=== PATIENT | female | born 1935 | race African-American/Black ===

== ENCOUNTER 2016-07-02 11:15 | Inpatient (IN) | payer MEDICARE ==
[2016-07-02 14:36] VITALS: BMI 33.1
[2016-07-02] MEDS ORDERED: Acetaminophen 325 MG TAB PO PRN ×2 (16:00)
[2016-07-02] MEDS ORDERED: Warfarin Sodium 5 MG TAB PO SCH ×2 (17:00)
[2016-07-02] MEDS ORDERED: Milk Of Magnesia 30 ML UDCUP PO PRN (17:11)
[2016-07-02] MEDS ORDERED: Ondansetron ODT 4 MG TAB PO PRN (17:11)
[2016-07-02] MEDS ORDERED: Albuterol Sulfate 2.5 mg/3 ml Neb NEB PRN (17:13)
[2016-07-02] MEDS ORDERED: Ipratropium Bromide 2.5 ml Neb NEB PRN (17:13)
[2016-07-02] MEDS ORDERED: Guaifenesin DM 100-10/5 ML UDCUP PO PRN (17:23)
[2016-07-02] MEDS ORDERED: Enoxaparin Sodium 100 MG/ML SYRINGE SC SCH (18:00)
[2016-07-02] MEDS ORDERED: HYDROcodone/Acetaminophen 5/325 mg Tablet PO PRN (18:43)
[2016-07-02] MEDS ORDERED: Sodium Chloride 0.9% 20 ML ONE (20:22)
[2016-07-02 20:54] LABS: #Basophils 0.1 thou/uL (0.0-0.2); #Lymphocytes 1.2 thou/uL (1.20-3.40); #Monocytes 0.7 thou/uL (0.11-0.59); #Neutrophils 15.3 thou/uL (1.40-6.50); %Basophils 0.3 % (0.0-1.0); %Eosinophils 0.1 % (0.0-10.0); %Lymphocytes 6.9 % (21.0-51.0); %Monocytes 3.8 % (0.0-10.0); Mean Corpuscular HGB CONC 34.1 g/dL (32.0-36.0); Mean Corpuscular Hemoglobin 29.2 pg (27.0-31.0); Mean Corpuscular Volume 85.8 fl (81.0-99.0); Mean Platelet Volume 8.1 fL (7.4-10.4); Platelet Count 197 thou/uL (130-400); RBC Distribution Width 13.4 % (11.5-14.5); Red Blood Cell (RBC) Count 4.11 mill/uL (4.20-5.40); White Blood Cell (WBC) Count 17.2 thou/uL (4.8-10.8)
[2016-07-02] MEDS ORDERED: Donepezil HCl 10 MG TAB PO SCH (21:00)
[2016-07-02] MEDS ORDERED: Cefdinir 300 MG CAP PO SCH (21:00)
[2016-07-02 21:39] LABS: ALT (SGPT) 71 U/L (8-55); AST (SGOT) 41 U/L (5-34); Albumin 3.5 g/dL (3.4-4.8); Alkaline Phosphatase 95 U/L (40-150); Anion Gap 15 mmol/L (10-20); BUN (Urea Nitrogen) 13 mg/dL (9.8-20.1); Bilirubin, Total 0.3 mg/dL (0.2-1.2); Calc. Creatinine Clearance 73 mL/min (70-130); Calcium 8.5 mg/dL (7.8-10.44); Carbon Dioxide 22 mmol/L (23-31); Chloride 101 mmol/L (98-107); Estimated GFR-MDRD 80; Globulin 2.3 g/dL (2.4-3.5); Glucose 260 mg/dL (83-110); Potassium 4.4 mmol/L (3.5-5.1); Protein, Total 5.8 g/dL (6.0-8.3); Sodium 134 mmol/L (136-145)
--- NOTE | 2016-07-02 22:24 | CT ---
CT ABDOMEN AND PELVIS WITHOUT IV CONTRAST 07/02/2016 HISTORY: Patient with bilateral pulmonary emboli and nonocclusive thrombus in the right popliteal vein. The patient is now complaining of mid and left lower quadrant abdominal pain, which started today. The patient's nurse noted a palpable abnormality in the affected area of pain. FINDINGS: There is enlargement of the lower left aspect of the rectus abdominis muscle, which demonstrates inc reased density and mild adjacent stranding. This has the appearance most suggestive of a hematoma w ithin the left rectus abdominis muscle\E\sheath and measures 8.1 cm craniocaudal x 4 cm AP x 6.3 cm transverse. There is stranding and subcutaneous gas seen within the subcutaneous fat of the anterolateral left l ower pelvis, as well as in the region of the bilateral flanks, likely related to areas of injection. There are low density areas seen scattered throughout each lobe of the liver, the largest in the lef t hepatic lobe measuring 2.1 cm and the largest in the right hepatic lobe measuring 1.7 cm, which ma y represent multiple hepatic cysts, but given multiplicity, other etiologies, including metastatic d isease, cannot be excluded. There is a tiny pericardial effusion. Vascular calcifications are seen in the coronary arteries, as well as involving the visualized thora cic, as well as the abdominal aorta and iliac arteries. There is a small hiatal hernia present. There is linear scarring versus atelectasis at the right lung base. The lung bases are otherwise cl ear. The spleen, pancreas, bilateral adrenal glands, kidneys, and urinary bladder demonstrate a grossly n ormal, nonenhanced CT appearance. The uterus is either small or surgically absent. There is colonic diverticulosis without CT evidence of diverticulitis. The appendix is visualized a nd is normal in caliber. No free fluid or free intraperitoneal gas is seen in the abdomen or pelvis. Degenerative changes are seen in the lumbar spine. IMPRESSION: 1. Evidence for a hematoma in the inferior aspect of the left rectus abdominis muscle\E\sheath. Th is likely corresponds to the area of the patient's palpable abnormality. There is adjacent strandin g. 2. Scattered hypodense lesions seen throughout each lobe of the liver, probably related to multiple hepatic cysts, but other etiologies, including metastatic disease, cannot be entirely excluded. 3. Tiny pericardial effusion. 4. Small hiatal hernia. 5. Colonic diverticulosis. 6. Scattered areas of subcutaneous emphysema and adjacent stranding, likely related to scattered ar eas of subcutaneous injection. The above findings were discussed with Giovanna, the nurse in charge of the patient's hospital care, on the hospital floor, on 07/02/2016, at 1938 hours. CODE CR POS: KRC
[2016-07-02 22:43] VITALS: TEMP 98.4
[2016-07-02 23:45] VITALS: BP 144/72
--- NOTE | 2016-07-03 04:00 | HP ---
DATE OF ADMISSION: 07/02/2016 ADMITTING PHYSICIAN: Eliseo Oshea MD PRIMARY CARE PHYSICIAN: Unknown. REASON FOR ADMISSION: Skilled rehabilitation at [facility] due to physical deconditioning, due to hospitalization for acute respiratory failure and pulmonary embolism. HISTORY OF PRESENT ILLNESS: Ms. Ram is an 80-year-old -[place] female with a medical history of Alzheimer dementia, asthma, lung cancer with right lobectomy, hypertension, hyperlipidemia. Patient had presented to [facility] on 06/23/2016 due to a worsening shortness of breath and upon evaluation in the emergency room, she was satting at 80s and no improvement with neb treatment and patient was subsequently put on a BiPAP and transferred over to [facility]. She was noted to have bilateral pulmonary embolism and DVT during the hospitalization in [facility]. Patient was started on Lovenox with Coumadin and shortness of breath has progressively improved. She was initially started on Levaquin, which was changed to cefdinir due to possible QT prolongation. During hospitalization in [facility], patient's condition, shortness of breath progressively improved and she did not have any complications other than the DVT and pulmonary embolism found. Patient was able to be weaned off BiPAP and due to all these above-mentioned she became physically deconditioned. Family had requested patient be transferred for skilled rehabilitation prior to discharge back to a home. Patient was subsequently transferred to [facility] for skilled rehabilitation. On day of discharge, INR was not yet therapeutic. INR upon discharge was 1.7 and patient was continued on Lovenox 90 b.i.d. and Coumadin 10 q.h.s. When I saw the patient today, she complained of some left-sided abdominal pain and wheezing. Due to her dementia, i was unable to get any more information from her other than the above-mentioned. Denies any fever or bleeding, no falls and patient is a FULL CODE. PAST MEDICAL HISTORY: Dementia, asthma, lung cancer with lumpectomy, hyperlipidemia, hypertension. PAST SURGICAL HISTORY: Lobectomy for lung cancer, bilateral total knee replacement. SOCIAL HISTORY: Denies tobacco use, denies alcohol use, denies illicit drug use. Patient lives at home with the assistance of family. ALLERGIES: No known drug allergies. MEDICATIONS: Namenda, donepezil, amlodipine, cefdinir 300 b.i.d., Lipitor 10 p.o. at bedtime, Norvasc 10 daily, quetiapine 25 at bedtime, prednisone 40 daily , warfarin 10 at bedtime, ipratropium nebs scheduled q.4 h and albuterol 2.5 neb q.2 h. p.r.n. shortness of breath or wheezing. REVIEW OF SYSTEMS: Significant for shortness of breath, unable to obtain more than that due to patient's dementia and confusion. PHYSICAL EXAMINATION: VITAL SIGNS: Temperature 98.2, pulse 74, respiration rate 18, O2 94% on room air, blood pressure 154/72. GENERAL APPEARANCE: Alert, awake, oriented x1 in mild distress due to left lower quadrant abdominal pain and shortness of breath. HEENT: Atraumatic, normocephalic. Pupils round, reactive, equal to light. Extraocular muscles intact. Mucous membranes are moist. NECK: Supple, no JVD. CHEST: Scattered wheezing, no crackles, no rales. HEART: S1, S2, no murmurs, no gallops. ABDOMEN: Soft, obese, mild tenderness to the left lower quadrant. EXTREMITIES: No cyanosis, clubbing, edema. Distal pulses present. NEUROLOGIC: Able to move all extremities. No sensory or motor deficits noted. PSYCHIATRIC: Patient is alert, awake, oriented x2 confused while conversational. ASSESSMENT: 1. Generalized weakness. 2. Acute respiratory failure with hypoxia. 3. Bilateral pulmonary embolism. 4. Deep vein thrombosis of the lower extremities, right popliteal vein. 5. Pulmonary hypertension. 6. Alzheimer dementia. 7. Hypertension. PLAN: The patient is being admitted to [facility] swing bed for skilled rehabilitation and gait strengthening. We will consult physical therapy and occupational therapy for strengthening in order to gain modified independence with gait and occupational therapy to help with activities of daily living prior to return to home. We will advise for gentle physical therapy due to high risk of fall and precautions due to high risk of bleed. Blood pressure to be measured only manually to help prevent easy bruising. We will restart patient's home medications. We will monitor INR, PT and PTT daily and adjust Coumadin and Lovenox as needed. We will monitor the patient for any medical comorbidities that may interfere with rehabilitation process. We will place the patient on Protonix for gastrointestinal prophylaxis and patient is already on Coumadin and Lovenox for DVT prophylaxis. We will place patient on tylenol as needed for pain. We will order CT abdomen if deemed necessary due to this new abdominal pain and tenderness. Estimated length of stay 3 to 4 weeks. DISPOSITION: Home. CODE STATUS: Patient is a FULL CODE. MTDD
[2016-07-03] MEDS ORDERED: Atorvastatin Calcium 10 MG TAB PO SCH (09:00)
[2016-07-03] MEDS ORDERED: predniSONE 20 MG TAB PO SCH (09:00)
[2016-07-03] MEDS ORDERED: WARFARIN SODIUM 10 MG PO SCH (17:00)
== END 2016-07-02 23:25 | disposition short-term general hospital (02) | DRG 175 ==
LOC: MADMS 14:20
PROVIDERS: ADMIT Family Medicine; ATTEND Family Medicine
DX: I26.99 Other pulmonary embolism without acute cor pulmonale (principal); J96.01 Acute respiratory failure with hypoxia; I82.431 Acute embolism and thrombosis of right popliteal vein; I27.2 Other secondary pulmonary hypertension; Z79.01 Long term (current) use of anticoagulants; R10.32 Left lower quadrant pain; R10.12 Left upper quadrant pain; G30.9 Alzheimer's disease, unspecified; F02.80 Dementia in other diseases classified elsewhere, unspecified severity, without behavioral disturbance, psychotic disturbance, mood disturbance, and anxiety; I10 Essential (primary) hypertension; J45.909 Unspecified asthma, uncomplicated; E78.5 Hyperlipidemia, unspecified; Z85.118 Personal history of other malignant neoplasm of bronchus and lung
CPT/HCPCS: 74150; 74176; 85025; 94640; A4216; G8978-GP-CL; G8979-GP-CJ; J1650; J7620